=== PATIENT | male | born 1985 | race Caucasian/White ===

== ENCOUNTER 2019-08-08 11:48 | Outpatient (CLI) | payer BC, SELFPAY ==
[2019-08-09 09:39] LABS: Hepatitis C Ab w Rflx HCV PCR Negative (Negative)
[2019-08-09 10:09] LABS: HIV-1/2 Ag & Ab Screen Negative (Negative)
[2019-08-09 10:23] LABS: Hepatitis B Surface Ag Negative (Negative)
[2019-08-09 14:55] LABS: Chlamydia Result Negative (Negative); GC Result Negative (Negative)
== END 2019-08-08 12:08 ==
PROVIDERS: PCP Family Medicine; Visit Provider Family Medicine
DX: N52.9 Male erectile dysfunction, unspecified (principal); Z11.4 Encounter for screening for human immunodeficiency virus [HIV]; Z11.3 Encounter for screening for infections with a predominantly sexual mode of transmission; Z11.59 Encounter for screening for other viral diseases
CPT/HCPCS: 36415; 86803; 87340; 87389; 87491; 87591